=== PATIENT | female | born 2005 | race Caucasian/White ===

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

== ENCOUNTER 2024-12-07 18:32 | Emergency (ER) | payer OTHER, MEDICAID, SELFPAY ==
--- OUTSIDE RECORDS SUMMARY | 2024-12-07 18:34 | XMS_ITS ---
Care Plan - [facility] Created on: December 07, 2024 BRIAN BRANDT : 2005 Sex: Female Author Organization [facility] Address [address] [place] [address] Phone Care Team Providers Care General Machine Operator Name Role Phone KERVIN ORTIZ, VI Primary Care Provider KERVIN Miguel, ZANE Olmedo [phone]
--- OUTSIDE RECORDS SUMMARY | 2024-12-07 18:34 | XMS_ITS | Encounter Summary ---
Author Organization [facility] Address [address] [place] [address] Phone Care Team Providers Care Textile Clothing And Footwear Mechanic Name Role Phone Renato Palacio MD Primary Care Provider Encounter Details Date Type Department Care Team (Late st Contact Info) Description 09/06/2020 Transcribe Orders [facility] Admitting [address] [place] [address] Renato Palacio MD [address] [facility] [address] [place] [address] Viral syndrome (Primary Dx) Social History Tobacco Use Types Packs/Day Years Used Date Smoking Tobacco: Never Assessed Comments No Sex and Gender Information Value Date Recorded Sex Assigned at Not on file Legal Sex Female 12:28 AM CDT Gender Identity Not on file Sexual Orientation Not on file documented as of this encounter Plan of Treatment Not on file documented as of this encounter Results * SARS-COV-2 BY MOLECULAR (09/06/2020 1:17 PM DENSITOMETER READER) SARSCOV2 NOT DETECTED (Referenc e Range for this test is Not Detected) [facility] THERMOFISHER FAST DX 09/07/2020 12:42 PM DENSITOMETER READER [facility] Swab NASOPHARYNGEAL STRUCTURE / Unknown Non-Phlebotomy Collection / Unknown 09/06/2020 1:17 PM DENSITOMETER READER 09/06/2020 1:23 PM DENSITOMETER READER Narrative [facility] - 09/07/2020 12:42 PM DENSITOMETER READER Authorized Fact Sheets about this test for providers and patients are available at: https://www.fda.gov/medical-devices/mfzdofbue-gswwgdizre-myexhoj-devices/emergen cy-us e-authorizations Result [facility] Renato Palacio MD MICROBIOLOGY - GENERAL ORDERABLES Final Result [facility] [address] [place] [address], documented in this encounter Visit Diagnoses Diagnosis Viral syndrome- Primary Unspecified viral infection, in conditions classified elsewhere and of unspecified site documented in this encounter Additional Health Concerns Infection Onset Date Last Indicated Resolved Time COVID - 19 09/06/2020 09/06/2020 09/26/2020 12:1 9 AM DENSITOMETER READER documented as of this encounter Care Teams Textile Clothing And Footwear Mechanic Relationship Specialty Start Date End Date Renato Palacio MD [address] [facility] [address] [place] [id number] PCP - General Pediatrics 09/06/20 documented as of this encounter
--- OUTSIDE RECORDS SUMMARY | 2024-12-07 18:34 | XMS_ITS | Clinical Summary ---
Author Organization [facility] Address [address] [place] [address] Phone Care Team Providers Care Mercury Cell Cleaner Name Role Phone Renato Palacio MD Primary Care Provider Allergies No known active allergies Medications predniSONE (DELTASONE) 10 MG TabletIndicatio ns:Rash Take 1 Tab by mouth daily. Take 4 tab PO daily x 2 days, 3 tab PO daily x 2 days, 2 tab PO daily x 2 day, 1 tab PO daily x 2 days. 20 Tab 07/04/2019 Active triamcinolone (KENALOG) 0.1 % CreamIndication s:Rash Apply thin film to affected area(s) twice daily until healed. 1 Tube 1 07/04/2019 Active Active Problems No known active problems Social History Tobacco Use Types Packs/Day Years Used Date Smoking Tobacco: Never Assessed Comments No Sex and Gender Information Value Date Recorded Sex Assigned at Not on file Legal Sex Female 12:28 AM CDT Gender Identity Not on file Sexual Orientation Not on file Last Filed Vital Signs Vital Sign Reading Time Taken Comments Blood Pressure - - Pulse 83 07/04/2019 6:27 PM CDT Temperature 37.8 C (100 F) 07/04/2019 6:27 PM CDT Respiratory Rate - - Oxygen Saturation 98% 07/04/2019 6:27 PM CDT Inhaled Oxygen Concentration - - Weight 54.4 kg (120 lb) 07/04/2019 6:27 PM CDT Height 160 cm (5' 3 ) 07/04/2019 6:27 PM CDT Body Mass Index 21.26 07/04/2019 6:27 PM CDT Plan of Treatment Health Maintenance Due Date Last Done Comments Hepatitis C Virus (HCV) Screening 2005 TdaP Immunization 2004 Human Papillomavirus (HPV) Immunization (1 - 3-dose series) 02/22/2019 Meningococcal B Immunization (1 of 2 - Standard) 2020 Hepatitis B Immunization (1 of 3 - 19+ 3-dose series) 02/22/2023 Influenza Immunization (#1) 2024 SARS-COV-2 Immunization (1 - 2023-25 season) 2024 Respiratory Syncytial Virus (RSV) Immunization (Adult) (1 - 1-dose 75+ series) 02/22/2079 Meningococcal Immunization (ACWY) Aged Out No longer eligible based on patient's age to complete this topic Pneumococcal Immunization Combined Aged Out No longer eligible based on patient's age to complete this topic Rotavirus Immunization Aged Out No lo nger eligible based on patient's age to complete this topic Insurance MEDICAID [employer] Care Teams Mercury Cell Cleaner Relationship Specialty Start Date End Date Renato Palacio MD [address] [facility] [address] [place] [id number] PCP - General Pediatrics 09/06/20
--- OUTSIDE RECORDS SUMMARY | 2024-12-07 18:34 | XMS_ITS | Clinical Summary ---
Author Organization [facility] Address [address] [place] [address] Phone Care Team Providers Care Internal Communications Intern Name Role Phone KERVIN ORTIZ, VI Primary Care Provider KERVIN Miguel, ZANE Guardado Unavailable [phone] Reason for Visit and Chief Complaint The Chief Complaint is: New pt exam, pt was bitten by a shark april 24 and is here to follow up Plan of Treatment - Return to the clinic if condition worsens or new symptoms arise - Last Documented On 05/16/2022 3:36PM ; [facility] - Patient to call if problem develops - Last Documented On 05/16/2022 3:36PM ; [facility] Assessments Includes: Assessments from this encounter Findings - W56.41XS - Bitten by eli hawkins - Last Documented On 05/16/2022 3:36PM ; [facility] Medical Equipment - Implanted Devices Includes: Current Devices No Medical Equipment Recorded Medications Includes: Medications discussed during this encounter and other current Medications No Medications Taken Medications Administered Includes: Administered Medications from this encounter No Administered Medications Recorded Vital Signs Includes: Vital Signs from this encounter Vital Name 05/16/2022 02:07P Blood Pressure Sitting (mmHg) 118/80 Pulse Rate-Sitting (bpm) 98 Respiration Rate (breaths/min) 18 Temp-Oral (F) 98.3 Weight (lb) 126 Oxygen Saturation (%) 100 Last Documented: On 05/16/2022 2:16PM ; [facility] Results Includes: Results discussed during this encounter No Results Recorded For Specified Dates History of Present Illness Includes: History of Present Illness from this encounter HPI BRIAN BRANDT is an 17 year old female. Shark bite injur at [place] April 24 off work / need work slip filled works at [employer] feels ok now UTD with Tetanus shot. - Allergy list reviewed - Medication list reviewed Social History Description Last Updated Not a current smoker 05/16/2022 Last Documented On 2 3:36PM ; [facility] Not using alcohol 05/16/2022 Last Documented On 2 3:36PM ; [facility] Tobacco non-user 05/16/2022 Last Documented On 2 3:36PM ; [facility] [PHQ-2] Patient Health Questionnaire 2 i tem total score: 2 (Scale: 0-6) 05/16/2022 Last Documented On 2 3:36PM ; [facility] Never a smoker 05/16/2022 Last Documented On 2 3:36PM ; [facility] No consumption of alcohol 05/16/2022 Last Documented On 2 3:36PM ; [facility] Not using drugs 05/16/2022 Last Documented On 2 3:36PM ; [facility] Occupation [employer] 05/16/2022 Last Documented On 2 3:36PM ; [facility] Smoking Status Unknown Procedures and Surgical History Includes: Procedures from this encounter Procedures Code Diagnosis Performing Provider Service L ocation Service Date use of tobacco assessment performed 1000F Last Documented On 2 2:16PM ; [facility] review of medications documented 1160F Last Documented On 2 2:16PM ; [facility] assessment of suicide risk performed Last Documented On 2 2:07PM ; [facility] screening for adult depression: impressi on and score seven Last Documented On 2 2:07PM ; [facility] standardized depression screening: posit callie for symptoms Last Documented On 2 2:07PM ; [facility] Medical History Includes: Medical History addressed during this encounter Description Last Updated Currently wearing eyeglasses 05/16/2022 Last Documented On 2 3:36PM ; [facility] No Exercise 05/16/2022 Last Documented On 2 3:36PM ; [facility] Wearing contact lenses 05/16/2022 Last Documented On 2 3:36PM ; [facility] Family History Includes: Family History addressed during this encounter No Family History Recorded Review of Systems Includes: Review of Systems from this encounter Systemic: No edema. Head: No headache. Eyes: No itching of the eyes and no watery discharge from eyes. Cardiovascular: No chest pain or discomfort. Pulmonary: No dyspnea and not expressed as feeling short of breath. Neurological: No dizziness. Mental Status Includes: Mental Status from this encounter No Mental Status Recorded Functional Status Includes: Functional Status from this encounter No Functional Status Recorded Physical Exam Includes: Physical Exam from this encounter Allergies Includes: Active Allergies No Known Allergies Encounters Encounter Provider Location Date Check-In Time Check-Out Time Diagnosis NEW PATIENT EXAM - ADULT ZANE GALEANA M.D. [facility] - [facility] 05/16/20 22 2:00PM 2:39PM Injury Caused By Animal Shark Bite Insurance Includes: Active Insurance Policies Plan Name Member ID Group # Subscriber Relationship Effect callie Dates 1 - [facility] [id number] BRIAN BRANDT Self Clinical Notes Includes: Clinical Notes from this encounter No Clinical Notes Recorded
--- OUTSIDE RECORDS SUMMARY | 2024-12-07 18:34 | XMS_ITS ---
Author Organization [facility] Address [address] [place] [address] Phone Care Team Providers Care Systems Design Engineer Name Role Phone KERVIN ORTIZ, VI Primary Care Provider [phone] KERVIN Miguel, ZANE S Shara [phone] Plan of Treatment Findings Encounter Date Ordered patient to call if bailey ramirez develops NEW PATIENT EXAM - ADULT with ZANE GALEANA M.D. 05/16/2022 Last Documented On 2 3:36PM ; [facility] Ordered return to the clinic if condition worsens or new symptoms arise NEW PATIENT EXAM - ADULT with ZANE GALEANA M.D. 05/16/2022 Last Documented On 2 3:36PM ; [facility] Assessments Includes: Assessments for all patient encounters Findings Encounter Date Shark bite NEW PATIENT EXAM - ADULT with BRET GALEANA M.D. 05/16/2022 Last Documented On 2 3:36PM ; [facility] Medical Equipment - Implanted Devices Includes: Current and historical Devices No Medical Equipment Recorded Medications Includes: Current and historical Medications No Medications Taken Medications Administered Includes: Administered Medications in patient's chart No Administered Medications Recorded Results Includes: Results from 12/07/2023 through 12/07/2024 No Results Recorded For Specified Dates History of Present Illness History of Present Illness not supported for this document type No History of Present Illness Recorded Social History Description Last Updated Not a current smoker 05/16/2022 Last Documented On 2 3:36PM ; [facility] Not using alcohol 05/16/2022 Last Documented On 2 3:36PM ; [facility] Tobacco non-user 05/16/2022 Last Documented On 2 3:36PM ; [facility] [PHQ-2] Patient Health Questionnaire 2 i tem total score: 2 (Scale: 0-6) 05/16/2022 Last Documented On 2 3:36PM ; [facility] Never a smoker 05/16/2022 Last Documented On 2 3:36PM ; [facility] No consumption of alcohol 05/16/2022 Last Documented On 2 3:36PM ; [facility] Not using drugs 05/16/2022 Last Documented On 2 3:36PM ; [facility] Occupation [employer] 05/16/2022 Last Documented On 2 3:36PM ; [facility] Smoking Status Unknown Medical History Includes: Medical History in patient's chart Description Last Updated Currently wearing eyeglasses 05/16/2022 Last Documented On 2 3:36PM ; [facility] No Exercise 05/16/2022 Last Documented On 2 3:36PM ; [facility] Wearing contact lenses 05/16/2022 Last Documented On 2 3:36PM ; [facility] Family History Includes: Family History in patient's chart No Family History Recorded Review of Systems Review of Systems not supported for this document type No Review of Systems Recorded Mental Status No Mental Status Recorded Functional Status No Functional Status Recorded Physical Exam Physical Exam not supported for this document type No Physical Exam Recorded Allergies Includes: Active, inactive, and resolved Allergies No Known Allergies Insurance Includes: Active Insurance Policies Plan Name Member ID Group # Subscriber Relationship Effect callie Dates - [facility] [id number] BRIAN BRANDT Self Clinical Notes Includes: Signed Clinical Notes starting from 11/10/2022 No Clinical Notes Recorded
--- OUTSIDE RECORDS SUMMARY | 2024-12-07 18:40 | XMS_ITS | Clinical Summary ---
Author Organization [facility] Address [address] [place] [address] Phone Care Team Providers Care Waistline Joiner Lockstitch Name Role Phone KERVIN ORTIZ, VI Primary Care Provider KERVIN Miguel, ZANE Guardado Unavailable [phone] Reason for Visit and Chief Complaint The Chief Complaint is: New pt exam, pt was bitten by a shark april 24 and is here to follow up Plan of Treatment - Return to the clinic if condition worsens or new symptoms arise - Last Documented On 05/16/2022 3:36PM ; [facility] - Patient to call if problem develops - Last Documented On 05/16/2022 3:36PM ; [facility] Assessments Includes: Assessments from this encounter Findings - W56.41XS - Bitten by eli hawkins - Last Documented On 05/16/2022 3:36PM ; [facility] Medical Equipment - Implanted Devices Includes: Current [...] Documented: On 05/16/2022 2:16PM ; [facility] Results Includes: Results discussed during this encounter [...] Documented On 2 3:36PM ; [facility] Not using alcohol 05/16/2022 Last Documented On 2 3:36PM ; [facility] Tobacco non-user 05/16/2022 Last Documented On 2 3:36PM ; [facility] [PHQ-2] Patient Health Questionnaire 2 i tem total score: 2 (Scale: 0-6) 05/16/2022 Last Documented On 2 3:36PM ; [facility] Never a smoker 05/16/2022 Last Documented On 2 3:36PM ; [facility] No consumption of alcohol 05/16/2022 Last Documented On 2 3:36PM ; [facility] Not using drugs 05/16/2022 Last Documented On 2 3:36PM ; [facility] Occupation [employer] 05/16/2022 Last Documented On 2 3:36PM ; [facility] Smoking Status Unknown Procedures and Surgical History Includes: Procedures from this encounter Procedures Code Diagnosis Performing Provider Service L ocation Service Date use of tobacco assessment performed 1000F Last Documented On 2 2:16PM ; [facility] review of medications documented 1160F Last Documented On 2 2:16PM ; [facility] assessment of suicide risk performed Last Documented On 2 2:07PM ; [facility] screening for adult depression: impressi on and score seven Last Documented On 2 2:07PM ; [facility] standardized depression screening: posit callie for symptoms Last Documented On 2 2:07PM ; [facility] Medical History Includes: Medical History addressed during this encounter Description Last Updated Currently wearing eyeglasses 05/16/2022 Last Documented On 2 3:36PM ; [facility] No Exercise 05/16/2022 Last Documented On 2 3:36PM ; [facility] Wearing contact lenses 05/16/2022 Last Documented On 2 3:36PM ; [facility] Family History Includes: Family [...] PATIENT EXAM - ADULT ZANE GALEANA M.D. [facility] 05/16/20 22 2:00PM 2:39PM Injury Caused By Animal Shark Bite Insurance Includes: Active Insurance Policies Plan Name Member ID Group # Subscriber Relationship Effect callie Dates 1 - [facility] [id number] BRIAN BRANDT Self Clinical Notes Includes: Clinical Notes from this encounter No Clinical Notes Recorded
--- OUTSIDE RECORDS SUMMARY | 2024-12-07 18:41 | XMS_ITS ---
Author Organization [facility] Address [address] [place] [address] Phone Care Team Providers Care Inspector Penetrant Name Role Phone KERVIN ORTIZ, VI Primary Care Provider [phone] KERVIN Miguel, ZANE S Shara [phone] Plan of Treatment Findings Encounter Date Ordered patient to call if bailey ramirez develops NEW PATIENT EXAM - ADULT with ZANE GALEANA M.D. 05/16/2022 Last Documented On 2 3:36PM ; [facility] Ordered return to the clinic if condition worsens or new symptoms arise NEW PATIENT EXAM - ADULT with ZANE GALEANA M.D. 05/16/2022 Last Documented On 2 3:36PM ; [facility] Assessments Includes: Assessments for all patient encounters Findings Encounter Date Shark bite NEW PATIENT EXAM - ADULT with BRET GALEANA M.D. 05/16/2022 Last Documented On 2 3:36PM ; [facility] Medical Equipment - Implanted Devices Includes: Current [...] 05/16/2022 Last Documented On 2 3:36PM ; [facility] Not using alcohol 05/16/2022 Last Documented On 2 3:36PM ; [facility] Tobacco non-user 05/16/2022 Last Documented On 2 3:36PM ; [facility] [PHQ-2] Patient Health Questionnaire 2 i tem total score: 2 (Scale: 0-6) 05/16/2022 Last Documented On 2 3:36PM ; [facility] Never a smoker 05/16/2022 Last Documented On 2 3:36PM ; [facility] No consumption of alcohol 05/16/2022 Last Documented On 2 3:36PM ; [facility] Not using drugs 05/16/2022 Last Documented On 2 3:36PM ; [facility] Occupation [employer] 05/16/2022 Last Documented On 2 3:36PM ; [facility] Smoking Status Unknown Medical History Includes: Medical History in patient's chart Description Last Updated Currently wearing eyeglasses 05/16/2022 Last Documented On 2 3:36PM ; [facility] No Exercise 05/16/2022 Last Documented On 2 3:36PM ; [facility] Wearing contact lenses 05/16/2022 Last Documented On 2 3:36PM ; [facility] Family History Includes: Family History in patient's [...] # Subscriber Relationship Effect callie Dates - [facility] [id number] BRIAN BRANDT Self Clinical Notes Includes: Signed Clinical Notes starting from 11/10/2022 No Clinical Notes Recorded
--- OUTSIDE RECORDS SUMMARY | 2024-12-07 18:41 | XMS_ITS ---
Care Plan - [facility] Created on: December 07, 2024 BRIAN BRANDT : 2005 Sex: Female Author Organization [facility] Address [address] [place] [address] Phone Care Team Providers Care Pension Manager Name Role Phone KERVIN ORTIZ, VI Primary Care Provider KERVIN Miguel, ZANE Olmedo [phone]
[2024-12-07 18:42] VITALS: BP 136/85; PULSE 108; RESP 20; TEMP 37.5; O2SAT 100
--- NOTE | 2024-12-07 19:51 | ED_ITS ---
HPI - General Adult General Chief complaint: Upper Respiratory Infection Stated complaint: Sore Throat/Fever/Body Aches Source: patient Mode of arrival: ambulatory Limitations: no limitations History of Present Illness HPI narrative: Patient presents for evaluation sick symptoms since yesterday. Symptoms include hot flashes, chills, generalized body aches, sore throat and cough. No nausea, vomiting, diarrhea, shortness of breath. 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 She has been taking Tylenol ibuprofen for symptoms. She does not smoke. Related Data Home Medications ?Medication ?Instructions ?Recorded ?Confirmed ?Last Taken ?Type No Home Medications 05/05/22 12/07/24 Unknown History Allergies Allergy/AdvReac Type Severity Reaction Status Date / Time No Known Allergies Allergy Verified 12/07/24 19:00 Review of Systems Review of Systems: CONSTITUTIONAL: Reports hot flashes and chills EYES: Denies visual changes, redness, or discharge. ENT: Reports sore throat. Denies rhinorrhea, congestion,or otalgia. CARDIOVASCULAR: Denies chest pain, palpitations, or edema. RESPIRATORY: Reports cough. Denies shortness of breath. GASTROINTESTINAL: Denies abdominal pain, nausea, vomiting, or diarrhea. GENITOURINARY: Denies dysuria or hematuria. SKIN: Denies rash or itching. MUSCULOSKELETAL: Reports generalized body aches. NEUROLOGIC: Denies headache, numbness, dizziness, or weakness. PSYCHIATRIC: Denies anxiety or depression. PMFSH Past Medical History Medical History No pertinent past medical history Surgical History Surgical History No pertinent past surgical history Family History Family History Mother Family history non-contributory Social History Social History Smoking status: Never smoker Alcohol intake: never Substance use: never Gender identity (if verbalized by the patient): Female Spiritual care concerns: No Exam Narrative: GENERAL: Well-appearing, well-nourished, and in no acute distress. HEAD: Normocephalic, atraumatic. EYES: PERRLA and EOMI. ENT: Nares clear, no rhinorrhea or epistaxis. Mucous membranes moist. Oropharynx without tonsillar hypertrophy exudate or other lesions. Bilateral TMs pearly cadet nonbulging NECK: Supple. No adenopathy or masses. No carotid bruits or JVD CHEST: Clear to auscultation. No respiratory distress. No wheezes rales or rhonchi HEART: Regular rate and rhythm. No murmur heard. Normal peripheral pulses. ABDOMEN: Soft, nontender, nondistended, normal active bowel sounds. EXTREMITIES: Normal range of motion. No edema. SKIN: Warm, dry, no rash. NEURO: No focal deficits. Alert and oriented x3. PSYCH: Normal mood and affect. Course Course Emergency Course: This is a 19-year-old female who presented for evaluation of sick symptoms. COVID and influenza negative. Exam is consistent with acute viral syndrome. Increase hydration. [id number] agents for symptom management. Follow up with primary provider. Go to the ER for worsening symptoms. Patient in agreement with plan of care. Level of Care: Express Care Visit Vital Signs Vital signs: Vital Signs Temperature 37.5 C 12/07/24 18:42 Pulse Rate 108 H 12/07/24 18:42 Respiratory Rate 20 12/07/24 18:42 Blood Pressure 136/85 12/07/24 18:42 Pulse Oximetry 100 12/07/24 18:42 Oxygen Delivery Room Air 12/07/24 18:42 Temperature 37.5 C 12/07/24 18:42 Pulse Rate 108 H 12/07/24 18:42 Respiratory Rate 20 12/07/24 18:42 Blood Pressure 136/85 12/07/24 18:42 Pulse Oximetry 100 12/07/24 18:42 Oxygen Delivery Room Air 12/07/24 18:42 Medical Decision Making Vital Signs Vital Signs: Vital Signs Temperature 37.5 C 12/07/24 18:42 Pulse Rate 108 H 12/07/24 18:42 Respiratory Rate 20 12/07/24 18:42 Blood Pressure 136/85 12/07/24 18:42 Pulse Oximetry 100 12/07/24 18:42 Oxygen Delivery Room Air 12/07/24 18:42 Temperature 37.5 C 12/07/24 18:42 Pulse Rate 108 H 12/07/24 18:42 Respiratory Rate 20 12/07/24 18:42 Blood Pressure 136/85 12/07/24 18:42 Pulse Oximetry 100 12/07/24 18:42 Oxygen Delivery Room Air 12/07/24 18:42 Discharge Plan Discharge Clinical Impression: Viral URI Patient Disposition: Home, Self-Care Condition: Stable Instructions: Antibiotic Form, Upper Respiratory Infection (DC), Viral Syndrome (ED) Additional Instructions: THE FOLLOWING MEDICATIONS SHOULD HELP YOUR SYMPTOMS: CEPACOL LOZENGES: SORE THROAT IBUPROFEN AND TYLENOL: BODY ACHES DEXTROMETHORPHAN: COUGH Patient Language: German Prescriptions: No Action No Home Medications Follow-up/Referrals: Manuelito,Kyra Gonzales MD [Primary Care Provider] - Stand Alone Forms: Work/School Release IP Time of Disposition: 19:34
[2024-12-08 13:36] LABS: EDCOVIDSCREEN Negative (Negative); EDINFLUASCREEN Negative (Negative); EDINFLUBSCREEN Negative (Negative); EDSTREPNEGPOS1 Negative (Negative)
== END 2024-12-07 19:35 | disposition home or self-care (01) ==
PROVIDERS: Emergency Provider Nurse Practitioner; PCP Family Medicine
DX: J06.9 Acute upper respiratory infection, unspecified (principal); Z20.822 Contact with and (suspected) exposure to COVID-19
CPT/HCPCS: 87081; 87426; 87804; 87880; 99213; G0463